=== PATIENT | male | born 1960 | race Caucasian/White ===

== ENCOUNTER 2018-03-13 17:39 | Emergency (ER) | payer OTHER ==
[~2018-03-13] VITALS: Ht 182.9 cm; Wt 79.4 kg
--- NOTE | ~2018-03-13 | EKG ---
[address] [address] ELECTROCARDIOGRAM REPORT Name: FERNANDO LYONS [id number] Admission: 03/13/18 Attend Phys: Discharge: 03/13/18 Date of : 58 Report #: [id number] THIS REPORT FOR: //name// [facility] ED Test Date: 2018-03-13 Test Time: 17:43:31 Pat Name: FERNANDO LYONS Department: Room: Gender: M Creeler: NICCI : 1960 Requested By: Dougie Khoury Order Number: [id number] MD: Jose Armando Jimenez Measurements Intervals [place] Rate: 85 P: 36 IN: 169 QRS: -32 QRSD: 100 T: 34 QT: 375 QTc: 446 Interpretive Statements Sinus arrhythmia Inferior infarct, old Anteroseptal infarct, old No previous ECG available for comparison Electronically Signed On 03-14-2018 7:34:36 CDT by Jose Armando Jimenez [email or web address] <ELECTRONICALLY SIGNED> By: Jose Armando Jimenez MD, [facility] 03/14/18 0734 [id number] Jose Armando Jimenez MD, FACC /EPI
[2018-03-13 18:10] LABS: ABSOLUTE NEUTROPHILS 4.3 thou/uL (1.4-8.2); BASOPHILS 1.3 % (0.0-2.0); EOSINOPHILS 5.2 % (0.0-3.0); HEMATOCRIT 47.3 % (42.0-52.0); LYMPHOCYTES 30.2 % (24.0-44.0); MCH 33.5 pg (26.0-34.0); MCHC 33.8 g/dL (28.0-37.0); MCV 99.1 fL (80.0-100.0); MONOCYTES 6.7 % (1.0-8.0); PLATELET COUNT 260 thou/uL (150-400); POLYS 56.6 % (36.0-66.0); RBC 4.77 mil/uL (4.50-6.00); RDW 14.7 % (10.5-14.5); WBC 7.6 thou/uL (4.0-11.0)
[2018-03-13 18:17] LABS: ANION GAP 12 mmol/L (7-16); BUN 7 mg/dL (7-18); CALCIUM 8.6 mg/dL (8.5-10.1); CHLORIDE 104 mmol/L (98-107); CO2 23 mmol/L (21-32); CREATININE 0.8 mg/dL (0.7-1.3); GLUCOSE 94 mg/dL (74-106); POTASSIUM 3.6 mmol/L (3.5-5.1); SODIUM 139 mmol/L (136-145)
[2018-03-13 18:25] LABS: TROPONIN-I <0.06 ng/mL (<0.06)
[2018-03-13 18:53] LABS: ALBUMIN 3.5 g/dL (3.4-5.0); DIRECT BILIRUBIN 0.2 mg/dL (<0.1-0.3); TOTAL BILIRUBIN 0.6 mg/dL (<0.1-1.0); TOTAL PROTEIN 7.3 g/dL (6.4-8.2)
[2018-03-13] MEDS ORDERED: PROTONIX 20 MG20 MG PO (20:30)
[2018-03-13] MEDS ORDERED: ZOFRAN4 MG PO (20:30)
[2018-03-13] MEDS ORDERED: CARAFATE 1 GM TA1 G1 PO (20:30)
[2018-03-13] MEDS ORDERED: PHENERGAN 25 MG25 M1 PO (20:41)
[2018-03-13 22:17] VITALS: BP 152/85
== END 2018-03-13 22:18 | disposition home or self-care (01) ==
LOC: ER 17:39
PROVIDERS: Emergency Medicine
DX: K29.70 Gastritis, unspecified, without bleeding (principal); F17.210 Nicotine dependence, cigarettes, uncomplicated